=== PATIENT | female | born 1965 | race Caucasian/White ===

== ENCOUNTER 2017-09-01 11:27 | Emergency (ER) | payer OTHER ==
[2017-09-01 11:40] VITALS: PULSE 65; RESP 18
--- NOTE | 2017-09-01 11:59 | ED ---
General Adult HPI - General Chief complaint: Dental/Oral Stated complaint: Tooth pain, poss infection Time Seen by Provider: 09/01/17 11:45 Source: patient, RN notes reviewed Mode of arrival: ambulatory Limitations: no limitations - History of Present Illness Initial comments: Patient 52-year-old female presented to the emergency room today with a chief complaint of increased dental pain. Patient does admit that over the last week she's been having some discomfort the right side of the lower gums. Patient does not that she saw her dentist was started on antibiotics of amoxicillin. Patient states that she's been on this antibiotic is not getting any better since that swelling was getting worse. She denies any difficulty swallowing. Patient does not that she has an appointment with guest relations coordinator waiting to hear back tomorrow. Patient does not that she used her last ibuprofen 800 mg at home. States still having discomfort this area. Denies any drainage. Denies any other complaints. Patient denies any recent fever, chills, shortness of breath, chest pain, abdominal pain, nausea or vomiting, headaches or visual changes, or any other complaints. - Related Data Previous Rx's Medication Instructions Recorded Ibuprofen [Motrin] 800 mg PO Q6HR #30 tab 09/01/17 Penicillin V Potassium [Pen Vee K] 500 mg PO QID #40 tablet 09/01/17 Allergies Allergy/AdvReac Type Severity Reaction Status Date / Time No Known Allergies Allergy Verified 09/01/17 11:40 Review of Systems ROS Statement: Those systems with pertinent positive or pertinent negative responses have been documented in the HPI. ROS Other: All systems not noted in ROS Statement are negative. Past Medical History Past Medical History: No Reported History History of Any Multi-Drug Resistant Organisms: None Reported Past Surgical History: Section, Cholecystectomy, Joint Replacement Past Psychological History: No Psychological Hx Reported Smoking Status: Former smoker Past Alcohol Use History: Occasional Past Drug Use History: None Reported General Exam - General Exam Comments Initial Comments: General: The patient is awake and alert, in no distress, and does not appear acutely ill. Eye: Pupils are equal, round and reactive to light, extra-ocular movements are intact. No nystagmus. There is normal conjunctiva bilaterally. Ears, nose, mouth and throat: There are moist mucous membranes and no oral lesions. Uvula midline. Patient swallows without any difficulty. Patient does have tenderness in the right lower gumline of teeth #29, 30, 31. There is no abscess on exam. Patient does have some mild swelling appreciated to the outside of the right cheek area. No fluctuant area. Neck: The neck is supple, there is no tenderness or JVD. Musculoskeletal: Normal ROM, no tenderness. Strength 5/5. Sensation intact. Pulses equal bilaterally 2+. Neurological: A&O x 3. CN II-XII intact, There are no obvious motor or sensory deficits. Coordination appears grossly intact. Speech is normal. Skin: Skin is warm and dry and no rashes or lesions are noted. Psychiatric: Cooperative, appropriate mood & affect, normal judgment. Limitations: no limitations Course Vital Signs 09/01/17 11:36 Temperature 98.6 F Pulse Rate 65 Respiratory 18 Rate Blood Pressure 147/79 O2 Sat by Pulse 100 Oximetry Medical Decision Making - Medical Decision Making The patient has been on clindamycin with no relief. Patient will be given antibiotic of penicillin. Patient has no difficulty swallowing or breathing. There is mild swelling on the outside on exam. She is tender the gumline does believe that this is a dental abscess. Patient does have an appointment but is waiting for the scheduled with the guest relations coordinator. She is advised to call tomorrow. Will be given prescription of ibuprofen 800 mg continue for pain control at home. Disposition Clinical Impression: Dental abscess Disposition: HOME SELF-CARE Condition: Good Instructions: Dental Abscess (ED) Additional Instructions: Please use medication as discussed. Please follow-up with dentist in the next 2 days of symptoms have not improved. Please return to emergency room if the symptoms increase or worsen or for any other concerns. Prescriptions: Ibuprofen [Motrin] 800 mg PO Q6HR #30 tab Penicillin V Potassium [Pen Vee K] 500 mg PO QID #40 tablet Is patient prescribed a controlled substance at d/c from ED?: No Referrals: Papito Zhu MD [Primary Care Provider] - 1-2 days Time of Disposition: 11:58
[2017-09-01 12:21] VITALS: BP 140/83; TEMP 97.6
== END 2017-09-01 12:18 | disposition home or self-care (01) ==
LOC: EC 11:27
DX: K04.7 Periapical abscess without sinus (principal); Z87.891 Personal history of nicotine dependence
CPT/HCPCS: 99282